=== PATIENT | female | born 1995 | race Caucasian/White ===

== ENCOUNTER 2021-04-08 15:08 | Emergency (ER) | payer OTHER ==
[~2021-04-08] VITALS: Ht 154.9 cm; Wt 106.6 kg
--- NOTE | 2021-04-08 15:21 | NUR ---
DR WATERMAN AT BEDSIDE FOR EVAL.
[2021-04-08 16:46] LABS: BILIRUBIN,URINE Negative (NEGATIVE); COLOR,URINE YELLOW (YELLOW); LEUKOCYTE ESTERASE ,URINE Negative (NEGATIVE); NITRITE, URINE Negative (NEGATIVE); PROTEIN,URINE Negative (NEGATIVE); UGLUCOSE Negative (NEGATIVE); UROBILINOGEN,URINE 0.2 EU/dL (0.2)
--- NOTE | 2021-04-08 17:20 | NUR ---
Patient discharged to home in stable condition. Written and verbal after care instructions given. Patient verbalizes understanding of instruction.
[2021-04-08 17:59] VITALS: BP 145/94
== END 2021-04-08 17:20 | disposition home or self-care (01) ==
LOC: ER 15:08
DX: S30.1XXA Contusion of abdominal wall, initial encounter (principal); K44.9 Diaphragmatic hernia without obstruction or gangrene; K42.9 Umbilical hernia without obstruction or gangrene; Z98.890 Other specified postprocedural states; Z88.2 Allergy status to sulfonamides; Z88.1 Allergy status to other antibiotic agents; W18.39XA Other fall on same level, initial encounter; Y93.89 Activity, other specified; Y92.89 Other specified places as the place of occurrence of the external cause; Y99.8 Other external cause status
CPT/HCPCS: 84703-TC; 87086-TC